=== PATIENT | female | born 1950 | race Caucasian/White ===

== ENCOUNTER 2016-11-08 20:33 | Emergency (ER) | payer MEDICARE, BC ==
[2016-11-08 20:58] VITALS: BP 147/63
--- NOTE | 2016-11-08 21:33 | ED ---
Abdominal Pain/Female - HPI Summary HPI Summary: 66 yr old female with complaint of right lower abdominal pain. Onset a couple of days ago. Pain is 10/10, radiates into her pelvis. Associated with some urinary symptoms. She feels fatigued and tired. Pain made worse with pushing on right lower abdomen. - History of Current Complaint Chief Complaint: UCAbdominalPain Stated Complaint: RT SIDE ABDOMINAL PAIN Time Seen by Provider: 11/08/16 21:14 Allergies/Adverse Reactions: Allergies Allergy/AdvReac Type Severity Reaction Status Date / Time Oxycodone AdvReac Nausea Verified 11/08/16 20:59 Home Medications: Home Medications Cholecalciferol TAB* [Vitamin D TAB*] 2,000 units PO DAILY 11/08/16 [History Confirmed 11/08/16] PMH/Surg Hx/FS Hx/Imm Hx Endocrine/Hematology History: Denies: Hx Diabetes, Hx Thyroid Disease Cardiovascular History: Denies: Hx Hypertension, Hx Pacemaker/ICD, Hx Peripheral Vascular Disease History: Denies: Hx Renal Disease Musculoskeletal History: Reports: Hx Arthritis - OSTEOARTHRITIS RIGHT ANKLE RIGHT SHOULDER RIGHT KNEE Denies: Hx Osteoporosis Sensory History: Reports: Hx Contacts or Glasses - READING Denies: Hx Cataracts, Hx Glaucoma, Hx Hearing Aid Opthamlomology History: Reports: Hx Contacts or Glasses - READING Denies: Hx Cataracts, Hx Glaucoma Neurological History: Denies: Hx Headaches, Hx Seizures, Hx Transient Ischemic Attacks (TIA) Psychiatric History: Denies: Hx Anxiety, Hx Depression, Hx Panic Disorder - Surgical History Surgery Procedure, Year, and Place: LEFT KNEE SURGERY 1984, LT SHOULDER REPAIR IN 2003, RT AND LT CARPAL [id number], LAMINECTOMY L4-L5 X2 , TOTAL KNEE LEFT 2012, RIGHT SHOULDER--2006,LTKR-2017 Hx Anesthesia Reactions: No Infectious Disease History: No Infectious Disease History: Denies: Traveled Outside the [place] in Last 30 Days - Social History Alcohol Use: Occasionally Alcohol Amount: 2 X MONTH Substance Use Type: Reports: None Smoking Status (MU): Never Smoked Tobacco Review of Systems Positive: Fatigue Positive: flank pain, hematuria, pain, urgency Neurological: Negative All Other Systems Reviewed And Are Negative: Yes Physical Exam Triage Information Reviewed: Yes Vital Signs On Initial Exam: Initial Vitals Temp Pulse Resp BP Pulse Ox 99.2 F 67 16 147/63 100 11/08/16 20:50 11/08/16 20:50 11/08/16 20:50 11/08/16 20:50 11/08/16 20:50 Vital Signs Reviewed: Yes Appearance: Positive: Well-Appearing, No Pain Distress, Well-Nourished Head/Face: Positive: Normal Head/Face Inspection Eyes: Positive: EOMI ENT: Positive: Normal ENT inspection Neck: Positive: Nontender Respiratory/Lung Sounds: Positive: Clear to Auscultation, Breath Sounds Present Cardiovascular: Positive: Normal, RRR Abdomen Description: Positive: Other: - tender in the right lower quadrant of the abdomen. Musculoskeletal: Positive: Strength/ROM Intact Neurological: Positive: Sensory/Motor Intact, Alert, Oriented to Person Place, Time, CN Intact II-III Diagnostics - Vital Signs Vital Signs Temp Pulse Resp BP Pulse Ox 11/08/16 20:50 99.2 F 67 16 147/63 100 - Laboratory Lab Statement: Any lab studies that have been ordered have been reviewed, and results considered in the medical decision making process. Abdominal Pain Fem Course/Dx - Course Course Of Treatment: 66 yr old female with 10/10 right lower abdominal pain, and tender as well. Refused ambulance transfer. Signed out AMA. She said she is going to [facility]. I called them and told them she is coming. TOMASA Sheridan. - Diagnoses Provider Diagnoses: Right lower quadrant abdominal pain Discharge - Discharge Plan Condition: Good Disposition: AGAINST MEDICAL ADVICE
--- NOTE | 2016-11-11 15:24 | UC ---
Progress - Progress Note Progress Note: made 2 attempts to reach this pt on both number in demographics. no answer. left 1 message to call back. please call this pt and inform of urine cx positive e.coli infection. see how pt is doing and if she went to [facility] for further eval and tx. if pt is not, it is import that pt recieve tx. because pt had severe LRQ pain and hematuria, it would be important for pt to have imaging studies to rule out infected kidney stone as well as appy. so we can not simply write rx unless pt has already had imaging. this would best be done in the er.
== END 2016-11-08 21:30 | disposition left against medical advice (07) ==
LOC: UCCORT 20:33
DX: R10.31 Right lower quadrant pain (principal); R30.0 Dysuria; R39.15 Urgency of urination; R31.9 Hematuria, unspecified; R53.83 Other fatigue; Z88.5 Allergy status to narcotic agent; M19.071 Primary osteoarthritis, right ankle and foot; M19.011 Primary osteoarthritis, right shoulder; M17.11 Unilateral primary osteoarthritis, right knee
CPT/HCPCS: 81003; 87077; 87086; 87186; 99212; G0463

== ENCOUNTER 2019-04-05 16:43 | Emergency (ER) | payer MEDICARE, BC ==
--- OUTSIDE RECORDS SUMMARY | 2019-04-05 16:59 | XMS REPORT | Summary of Care ---
:1950 Author Organization [facility] Address [address] [place] [id number] Care Team Providers Name Role Phone Сергей Vazquez MD Primary Care Provider Reason for Visit Reason Comments Follow-up 01/02/2013 Left TKA Encounter Details Date Type Department Care Team Description 02/09/2019 Office Visit Stephen Fagan Ryan H/O total knee replacement, left (Primary Dx); [facility] [place] Primary osteoarthritis of right knee [address] [place] [address] [facility], [address] [place] [address] [phone] Allergies Active Allergy Reactions Severity Noted Date Comments Indomethacin 03/04/2008 Gary Oxycodone Nausea And Vomiting 10/16/2016 Tramadol 08/01/2017 tremors documented as of this encounter (statuses as of 02/09/2019) Medications Medication Sig Dispensed Refills Start Date End Date Status vitamin B-12 Take 500 mcg by 0 Active (CYANOCOBALAMIN) 500 mouth daily. MCG tablet Vitamin D, Take 1,000 Units 0 Active Cholecalciferol, 1000 by mouth daily units capsule IRON PO Take by mouth 0 Active daily as needed Liquid Iron RESTASIS 0.05 % instill 1 drop 0 03/18/2017 Active ophthalmic emulsion into both eyes twice a day documented as of this encounter (statuses as of 02/09/2019) Active Problems Problem Noted Date Status post total left knee replacement using cement 12/26/2014 Chronic pain of right knee 12/26/2014 Arthritis, midfoot 01/05/2014 Knee joint replacement by other means 05/27/2013 Arthritis of left knee 12/11/2012 documented as of this encounter (statuses as of 02/09/2019) Social History Tobacco Use Types Packs/Day Years Used Date Never Smoker 0 Smokeless Tobacco: Never Used Alcohol Use Drinks/Week oz/Week Comments Yes occasional Sex Assigned at Date Recorded Not on file Job Start Date Occupation Industry Not on file Not on file Not on file Travel History Travel Start Travel End No recent travel history available. documented as of this encounter Last Filed Vital Signs Not on filedocumented in this encounter Patient Instructions Patient InstructionsKeysha Prado LPN - 02/09/2019 1:00 PM ESTThe patient is instructed to call the office with any question/concerns or if symptoms worsen. Patients with total joint replacements: We recommend avoiding elective dental work and cleanings until 3 months after your joint replacementsurgery. Current evidence does not support prophylactic antibiotics following total joints for routine dentalprocedures. However, if a treating dentist strongly recommends pre-procedural antibiotics, the following are the typical agents to be used: Amoxicillin - 2 grams orally one hour prior to procedure, ORKeflex 1 gram orally one hour prior to procedure, ORAncef 1 gram IV during induction of anesthesia If allergic to penicillins: Erythromycin 1 gram orally one hour prior to procedure, ORClindamycin 600 mg orally one hour prior to procedure, ORClindamycin 600 mg IV during induction of anesthesia Please be advised that prophylactic use means there is no active infection. In the case that there IS an active infection, specific drugs to treat the infection will likely be indicated. documented in this encounter Progress Notes Joseluis Mitchell PA - 02/09/2019 1:00 PM EST Established Patient, Subsequent Encounter Annual Total Knee Replacement Follow-Up Knee arthritis follow-up Episode of Care: Subsequent Anatomical Site/ Laterality: left knee Attending: August Jorge MD Chief Complaint Patient presents with Follow-up 01/02/2013 Left TKA Lisandra returns for 6 year follow-up after left primary total knee replacement. Patient is happy withthe knee replacement and has no more than minor complaints of pain. Limb lengths are equal and stability is good. Also following up regarding right knee DJD. She had Monovisc injection earlier this year which gaveher good relief of her pain. She would like to repeat. Past medical/surgical history, medications and allergies and review of systems documented in electronic record and reviewed. PHYSICAL EXAMINATION General: Patient is in good spirits, cooperative with exam, A&O, NAD Gait: Non-antalgic, unassisted by ambulatory aids. Left Knee: Well healed vertical midline incision. Good alignment. Good AROM 0 to 140. Non-tenderto palpation. Stable to anteroposterior and varus/valgus stress. Good strength throughout. Neurovascular status distally on the left side shows intact foot dorsiflexion/ plantarflextion/EHL, normal light touch sensation in the deep and superficial peroneal nerve distribution as well as the medial and lateral plantar nerve distributions; foot is are well perfused. Right knee: Skin is intact to swelling ecchymosis or deformity. Good alignment. Active range of motion 0-130. TTP medial lateral joint lines. Stable into posterior varus/5 stress. Good strength throughout. Distal neurovascular status intact. IMAGING REVIEW: Imaging reviewed by myself with the patient/family, final radiology report pending.Knee XRs show left TKA components in good position and alignment without complications. There are no signs of loosening. Right knee with stable degenerative changes ASSESSMENT: Doing well 6 year(s) status post left primary total knee replacement. Right knee DJD, moderate PLAN: Left knee:Well see Lisandra back in the office in 12 months with repeat x-rays : left knee standingAP, lateral, and patellofemoral views. Right knee: we will submit for Monovisc authorization and see her back in 2 weeks to proceed with injection. If there are any concerns in the meantime, the patient was instructed to call earlier. CC: Сергей García MD This document was dictated using [employer] software. A reasonable attempt at proof reading has been made to minimize errors. Please call our office if you have any questions. documented in this encounter Plan of Treatment Date Type Specialty Care Team Description 03/02/2019 Office Visit Orthopedic Surgery Joseluis Mitchell PA [address] [place] [address] [phone] 02/14/2020 Office Visit Orthopedic Surgery Joseluis Mitchell, A[place] [address] [place] [address] [phone] Health Maintenance Due Date Last Done Comments Hepatitis C Screening (B. 1950 [id number]) Breast Cancer Screening 2 01/22/1998 years Colon Cancer Screening 10 yrs 01/22/1998 Osteoporosis Screening 2 yr 01/22/2013 Pneumococcal Vaccine: 65+ 01/22/2013 Years (1 of 2 - PCV13) MMR Vaccines (1 of 1 - 11/05/2016 Standard series) Zoster Vaccines (2 of 3) 12/03/2016 10/08/2016 DTaP,Tdap,and Td Vaccines (3 03/26/2017 09/24/2016, - Td) 08/12/2006 Influenza Vaccine 12/29/2018 Varicella Vaccines Aged Out 10/08/2016 No longer eligible based on patient's age to complete this topic HIB Vaccines Aged Out No longer eligible based on patient's age to complete this topic Hepatitis A Vaccines Aged Out No longer eligible based on patient's age to complete this topic Hepatitis B Vaccines Aged Out No longer eligible based on patient's age to complete this topic IPV Vaccines Aged Out No longer eligible based on patient's age to complete this topic Pneumococcal Vaccine: Aged Out No longer eligible based Pediatrics (0 to 5 Years) and on patient's age to At-Risk Patients (6 to 64 complete this topic Years) documented as of this encounter Results Not on filedocumented in this encounter Visit Diagnoses Diagnosis H/O total knee replacement, left - Primary Primary osteoarthritis of right knee Primary localized osteoarthrosis, lower leg documented in this encounter
--- OUTSIDE RECORDS SUMMARY | 2019-04-05 16:59 | XMS REPORT | Summary of Care ---
:1950 Author Organization [facility] Address [address] [place] [address] Care Team Providers Name Role Phone Сергей Vazquez MD Primary Care Provider Reason for Visit Reason Comments Follow-up Right knee Osteoarthritis - Monovisc Authorized Encounter Details Date Type Department Care Team Description 03/02/2019 Office Visit Ruth SalazarsStephen Ryan Primary osteoarthritis of [facility] right knee (Primary Dx) [address] [place] [address] [facility], [address] [place] [address] [phone] Allergies Active Allergy Reactions Severity Noted Date Comments Indomethacin 03/04/2008 Gary Oxycodone Nausea And Vomiting 10/16/2016 Tramadol 08/01/2017 tremors documented as of this encounter (statuses as of 03/02/2019) Medications Medication Sig Dispensed Refills Start Date [...] emulsion into both eyes twice a day Hospital, Clinic, or Other Ordered Dose Route Frequency Start Date End Date Status Facility Administered Medication hyaluronan (MONOVISC) 88 mg IX Once 03/02/2019 03/02/2019 Ended intra-articular injection 88 mgIndications: Primary osteoarthritis of right knee documented as of this encounter (statuses as of 03/02/2019) Active Problems Problem Noted Date Status post total left knee replacement using cement 12/26/2014 Chronic pain of right knee 12/26/2014 Arthritis, midfoot 01/05/2014 Knee joint replacement by other means 05/27/2013 Arthritis of left knee 12/11/2012 documented as of this encounter (statuses as of 03/02/2019) Social History Tobacco Use Types Packs/Day Years [...] Patient Instructions Patient InstructionsKeysha Prado LPN - 03/02/2019 11:00 AM ESTThe patient is instructed to call the office with any question/concerns or if symptoms worsen. The information below is for our patients who have received a Monovisc injection in our office. Medication used in your injection today included: Hyaluronan (an injection that supplements the fluid in your knee to help lubricate and cushion the joint, and can provide up to six months of knee pain relief. The injection you have just received normally goes without incident. The injection area may be sore,throbbing or slightly swollen for one to two days. Unless your doctor tells you otherwise, applyingice to the area (10 to 15 minutes every one to two hours) for the first day or two will help decrease the pain. In addition, you may benefit from taking acetaminophen (Tylenol), or Ibuprofen (Motrin) to help reduce the pain. Usually a numbing medication is given with the injection, which can last for one to two hours. Possible complications: Side effects with Hyaluronan may include but not be limited to: pain, swelling, heat, rash, itching, bruising and/or redness. These reactions are generally mild and do not last long. If any of these symptoms or signs appear after you are given the injection or if you have any other problems, you should contact your healthcare provider. documented in this encounter Progress Notes Joseluis Mitchell PA - 03/02/2019 11:00 AM EST Established Patient, Subsequent Encounter - Knee Injection Episode of Care: Subsequent Anatomical Site/ Laterality: Right knee Attending: August oJrge MD Chief Complaint Patient presents with Follow-up Right knee Osteoarthritis - Monovisc Authorized Lisandra returns to the office today to proceed with previously discussed knee injection(s). There havebeen no changes in the symptoms or exam since the last visit. We'll proceed on with injection as planned with injection to the right knee. We'll see the patient back as needed for the knee pain. Thepatient/ family stated understanding and agreement with the plan. Indication: Knee arthritis Procedure: Intra-articular right knee injection. Informed verbal consent was obtained, including risks, benefits and alternatives. The correct knee was confirmed and the patients knee was sterilely prepped and injected in extension from a lateral para-patellar approach with 4 mL Monovisc after the joint was localized with 1% plain lidocaine. Procedure was tolerated well without complications. A bandaid was applied, and the patient was giveninstructions in rest, judicious use of ice, and follow-up. Follow-up: PRN Imaging Next Visit: PRN Orders Placed This Encounter Drain/Inject Large Joint/Bursa hyaluronan (MONOVISC) intra-articular injection 88 mg CC: Сергей García MD documented in this encounter Plan of Treatment Date Type Specialty Care Team Description 02/14/2020 Office Visit Orthopedic Surgery Joseluis Mitchell PA [address] [place] [address] [phone] Health Maintenance Due Date Last Done Comments Hepatitis C Screening (B. 1950 [id number]) Breast Cancer Screening 2 01/22/1998 years Colon [...] filedocumented in this encounter Visit Diagnoses Diagnosis Primary osteoarthritis of right knee - Primary Primary localized osteoarthrosis, lower leg documented in this encounter Administered Medications Medication Order MAR Action Action Date Dose Rate Site hyaluronan (MONOVISC) Given 03/02/2019 11:26 AM EST 88 mg intra-articular injection 88 mg 88 mg, Intra-articular, Once, 03/02/19 at 1115, For 1 dose documented in this encounter
[2019-04-05 17:21] VITALS: BP 127/62
--- NOTE | 2019-04-05 17:59 | UC ---
Respiratory Complaint HPI - HPI Summary HPI Summary: 69-year-old female presents with complaints of nasal congestion, sinus pressure , sore throat, and a dry nonproductive cough since 03/26/2019. States that over the holidays she was exposed to multiple family members with upper respiratory symptoms and that her has also been ill and was diagnosed today with pneumonia. States symptoms are associated with some fatigue, body aches, and chills. Denies fever, ear pain, dysphagia, chest pain, shortness of breath, abdominal pain, nausea, vomiting, or diarrhea. - History of Current Complaint Chief Complaint: UCRespiratory Stated Complaint: COUGH,SINUS PRESSURE,EAR COMPLAINT Time Seen by Provider: 04/05/19 17:54 Hx Obtained From: Patient Pain Intensity: 7 - Allergies/Home Medications Allergies/Adverse Reactions: Allergies Allergy/AdvReac Type Severity Reaction Status Date / Time oxycodone AdvReac Vomiting Verified 04/05/19 17:21 Home Medications: Home Medications Acetaminophen [Acetaminophen Extra Strength] 1,000 mg PO Q6H PRN 04/05/19 [ History Confirmed 04/05/19] Otc Antihistamine,Decongestant 1 dose PO Q6H PRN 04/05/19 [History Confirmed 09/17] PMH/Surg Hx/FS Hx/Imm Hx Previously Healthy: Yes - Denies significant PMH - Surgical History Surgical History: Yes Surgery Procedure, Year, and Place: LEFT KNEE SURGERY 1984, LT SHOULDER REPAIR IN 2003, RT AND LT CARPAL [id number], LAMINECTOMY L4-L5 X2 2006/2011, TOTAL KNEE LEFT 2012, RIGHT SHOULDER--2006,LTKR-2016 - Family History Known Family History: Positive: Non-Contributory - Social History Occupation: Retired Lives: With Family Alcohol Use: Occasionally Alcohol Amount: 2 X MONTH Substance Use Type: None Smoking Status (MU): Never Smoked Tobacco Review of Systems All Other Systems Reviewed And Are Negative: Yes Constitutional: Positive: Chills, Fatigue. Negative: Fever Eyes: Negative: Drainage, Eye Redness ENT: Positive: Sore Throat, Nasal Discharge, Sinus Congestion, Sinus Pain/ Tenderness. Negative: Ear Ache Respiratory: Positive: Cough. Negative: Shortness Of Breath Cardiovascular: Negative: Palpitations, Chest Pain Gastrointestinal: Negative: Abdominal Pain, Vomiting, Diarrhea, Nausea Genitourinary: Positive: Negative Musculoskeletal: Positive: Myalgia Neurological: Positive: Negative Is Patient Immunocompromised?: No Physical Exam - Summary Physical Exam Summary: GENERAL APPEARANCE: Alert and cooperative older adult pain who appears to be in no acute distress. EYES: Conjunctiva clear. No drainage. EARS: External auditory canals and tympanic membranes clear, hearing grossly intact. NOSE: Moderate nasal congestion. Yellow nasal discharge. THROAT: Pharyngeal cobblestoning. No tonsilar inflammation, swelling, exudate, or lesions. Uvula midline. NECK: Neck supple, non-tender without lymphadenopathy. CARDIAC: Normal S1 and S2. No S3, S4 or murmurs. Rhythm is regular. There is no peripheral edema, cyanosis or pallor. Extremities are warm and well perfused. Capillary refill is less than 2 seconds. Peripheral pulses intact. LUNGS: Clear to auscultation without rales, rhonchi, wheezing or diminished breath sounds. Dry, nonproductive cough. ABDOMEN: Positive bowel sounds. Soft, nondistended, nontender. No guarding or rebound. No masses or hepatosplenomegally. MUSKULOSKELETAL: ROM intact to all extremities. No joint erythema or tenderness. Normal muscular development. Normal gait. SKIN: Skin normal color, texture and turgor with no lesions or eruptions. Triage Information Reviewed: Yes Vital Signs: Initial Vital Signs Temp 98.3 F 04/05/19 17:11 Pulse 68 04/05/19 17:11 Resp 18 04/05/19 17:11 BP 127/62 04/05/19 17:11 Pulse Ox 97 04/05/19 17:11 Vital Signs Reviewed: Yes Respiratory Course/Dx - Course Course Of Treatment: 69-year-old female presents with complaints of nasal congestion, sinus pressure , sore throat, and a dry nonproductive cough since 03/26/2019. States that over the holidays she was exposed to multiple family members with upper respiratory symptoms and that her has also been ill and was diagnosed today with pneumonia. States symptoms are associated with some fatigue, body aches, and chills. Denies fever, ear pain, dysphagia, chest pain, shortness of breath, abdominal pain, nausea, vomiting, or diarrhea. Afebrile. Vital signs stable. Patient had moderate nasal congestion, pharyngeal cobblestoning, no cervical lymphadenopathy, clear bilateral breath sounds, dry nonproductive cough , and otherwise unremarkable exam. Considering the duration of her symptoms will treat for an upper respiratory infection with Augmentin 8 or 75 mg twice a day 10 days as well as recommend symptomatic treatment including Tessalon Perles 1 capsule every 8 hours as needed for cough. She is to follow-up with her primary care provider in 3-5 days if symptoms are not improving. Anticipatory guidance and warning symptoms are reviewed with the patient. Verbalizes understanding and agrees with plan of care. - Differential Dx/Diagnosis Differential Diagnosis/HQI/PQRI: Bronchitis, Lower Resp Infection, Sinusitis, Other - URI Provider Diagnosis: Upper respiratory infection with cough and congestion Discharge ED - Sign-Out/Discharge Documenting (check all that apply): Patient Departure All imaging exams completed and their final reports reviewed: No Studies - Discharge Plan Condition: Stable Disposition: HOME Prescriptions: Amoxicillin/Clavulanate TAB* [Augmentin TAB 875*] 875 mg PO BID #20 tab Benzonatate CAP* [Tessalon 100 MG CAP*] 100 mg PO TID PRN #21 cap PRN Reason: Cough Patient Education Materials: Upper Respiratory Infection (ED) Referrals: Elvie Holliday NP [Primary Care Provider] - 3 Days (Follow up in 3-5 days if symptoms are not improving.) Additional Instructions: Your history and exam are consistent with an upper respiratory infection. Considering the duration of your symptoms we will start you on an antibiotic to treat the infection. Take Augmentin 875 mg 1 tab twice a day for 10 days. Take with food to avoid upset stomach. Be sure to complete the entire course even if feeling better. Drink plenty of fluids to avoid dehydration especially if you are running any fever. Use a saline rinse kit such as Neti Pot or NeilMed at least twice a day to help thin secretions and promote drainage of the sinuses. Use fluticasone (Flonase) nasal spray 2 sprays each nostril once daily. Use Tessalon Perles one capsule every 8 hours as needed for cough. Take over the counter acetaminophen (Tylenol) or ibuprofen (Advil, Motrin) according to directions as needed for pain or fever. Use salt water gargles several times a day if you have a sore throat. You may also use Chloraseptic spray or Cepacol lonzenges according to directions which contain a numbing medication and can provide some temporary relief from your sore throat. Follow up with your primary care provider in 3-5 days if symptoms persist. Seek immediate medical attention in the emergency room if you have fever greater than 100.5 F despite taking acetaminophen or ibuprofen, have chest pain , difficulty breathing, are unable to swallow, or have any worsening of symptoms. - Billing Disposition and Condition Condition: STABLE Disposition: Home
== END 2019-04-05 18:19 | disposition home or self-care (01) ==
LOC: UCCORT 16:43
DX: J06.9 Acute upper respiratory infection, unspecified (principal); R05 Cough; R09.81 Nasal congestion; Z88.5 Allergy status to narcotic agent
CPT/HCPCS: 99212; G0463